=== PATIENT | female | born 1970 | race Two or more races ===

== ENCOUNTER 2024-12-07 06:56 | Day surgery (SDC) | payer BC, OTHER ==
[2024-12-07] MEDS ORDERED: LIDOCAINE HCL 1%, 10 MG/ML (20ML VIAL) ONE (11:14)
[2024-12-07] MEDS ORDERED: BUPIVACAINE HCL/PF 0.5% (5MG/ML) 10 ML VIAL ONE (11:15)
[2024-12-07] MEDS ORDERED: LIDOCAINE 1%/EPI 1:100000 (20 ML MULTI DOSE VIAL) ONE (11:20)
[2024-12-07] MEDS ORDERED: ROCURONIUM BROMIDE 50 MG/5 ML SYRINGE ONE ×2 (11:49→11:52)
[2024-12-07] MEDS ORDERED: ePHEDrine SULFATE 50 MG/1 ML AMPULE ONE (11:49)
[2024-12-07] MEDS ORDERED: PROPOFOL 20 ML ONE (11:49)
[2024-12-07] MEDS ORDERED: LIDOCAINE HCL 2% 100 MG/5 ML DISP.SYRIN ONE (11:49)
[2024-12-07] MEDS ORDERED: MIDAZOLAM HCL 2 MG/2 ML SINGLE DOSE VIAL ONE (11:50)
[2024-12-07] MEDS: ceFAZolin SODIUM 1 GM VIAL IVPB ONE (12:10)
[2024-12-07] MEDS ORDERED: SUGAMMADEX SODIUM 200 MG/2 ML VIAL ONE (12:26)
[2024-12-07] MEDS ORDERED: ONDANSETRON 4 MG/2 ML VIAL ONE (12:26)
[2024-12-07] MEDS ORDERED: DEXAMETHASONE SOD PHOSPHATE 4 MG/1 ML VIAL ONE (12:26)
[2024-12-07] MEDS ORDERED: ACETAMINOPHEN INJECTION 100 ML ONE (12:26)
[2024-12-07] MEDS ORDERED: oxyCODONE HCL 5 MG TABLET PO PRN (12:27)
[2024-12-07] MEDS ORDERED: ONDANSETRON 4 MG/2 ML VIAL IVPUSH PRN (12:27)
[2024-12-07] MEDS ORDERED: PROMETHAZINE HCL 25 MG/1 ML VIAL IVPB PRN (12:27)
[2024-12-07] MEDS ORDERED: LACTATED RINGERS SOLUTION 1,000 ML IV SCH (12:30)
[2024-12-07] MEDS: BUPIVACAINE HCL/PF 0.5% (5MG/ML) 10 ML VIAL IJ ONE (12:31)
[2024-12-07] MEDS: HYDROmorphone HCl 2 MG/ML VIAL IVPUSH ONE (15:44)
[2024-12-07 17:06] VITALS: RESP 16
[2024-12-07 18:16] VITALS: BP 144/83; PULSE 65; TEMP 97.8
== END 2024-12-07 18:22 | disposition home or self-care (01) ==
LOC: JASU-SURG 06:56
PROVIDERS: ATTEND Obstetrics & Gynecology Gynecologic Oncology
PROC: 0UT2FZZ Resection of Bilateral Ovaries, Via Natural or Artificial Opening With Percutaneous Endoscopic Assistance (ICD-10-PCS; 2024-12-07)
PROC: 8E0W4CZ Robotic Assisted Procedure of Trunk Region, Percutaneous Endoscopic Approach (ICD-10-PCS; 2024-12-07)
PROC: 0UT9FZZ Resection of Uterus, Via Natural or Artificial Opening With Percutaneous Endoscopic Assistance (ICD-10-PCS; principal; 2024-12-07 11:00)
PROC: 0UT7FZZ Resection of Bilateral Fallopian Tubes, Via Natural or Artificial Opening With Percutaneous Endoscopic Assistance (ICD-10-PCS; 2024-12-07 11:00)
DX: N95.0 Postmenopausal bleeding (principal); D25.9 Leiomyoma of uterus, unspecified
CPT/HCPCS: 58554; S2900; 82962; 86850; 86900; 86901; 88309-TC; 94760